=== PATIENT | female | born 1930 | race Caucasian/White ===

== ENCOUNTER 2016-10-23 08:57 | Observation (INO) | payer MEDICARE, OTHER ==
[2016-10-23] VITALS (8 sets, daily range): BP systolic 95–127; BP diastolic 38–64; PULSE 70–79; TEMP 97.4–97.6
[~2016-10-23] VITALS: Ht 160 cm; Wt 80.0 kg
[2016-10-23 09:52] LABS: MEAN CELL VOLUME 86 fl (80.0-100.0); MEAN CORPUSCULAR HGB CONC 32 g/dl (33.0-37.0); MEAN PLATELET VOLUME 9.6 fl (7.4-10.4); PLATELET COUNT 245 K/mm3 (130-400); RED BLOOD COUNT 4.16 M/mm3 (4.10-5.30); REDCELL DISTRIBUTION WIDTH-CV 15.2 % (11.5-14.5)
[2016-10-23 09:55] LABS: HEMATOCRIT 35.9 % (37.0-47.0); HEMOGLOBIN 11.6 g/dl (12.5-16.0); MEAN CORPUSCULAR HEMOGLOBIN 28 pg (27.0-31.0)
[2016-10-23 10:03] LABS: INR 1.2 (0.8-3.0); PROTHROMBIN TIME 12.8 SECONDS (9.7-12.8)
[2016-10-23 10:10] LABS: CALCIUM 9.6 mg/dL (8.4-10.2); CREATININE, serum 1.47 mg/dL (0.52-1.25)
[2016-10-23] MEDS ORDERED: ALDACTONE 25MG25 M1 PO ×2 (10:47→10:54)
[2016-10-23] MEDS ORDERED: ASPIRIN E.C. 8181 MG PO (10:48)
[2016-10-23] MEDS ORDERED: COUMADIN 3MG3 MG/TAB PO (10:49)
[2016-10-23] MEDS ORDERED: LASIX 80MG TABL80 MG PO (10:52)
[2016-10-23] MEDS ORDERED: COREG 3.123.125 MG/T PO (10:55)
[2016-10-23] MEDS ORDERED: COLACE 100100 MG/CAP PO (10:56)
[2016-10-23] MEDS ORDERED: DULCOLAX S10 MG/SUPP RC (10:56)
[2016-10-23] MEDS ORDERED: MAALOX ADVANCE148 ML PO (10:57)
[2016-10-23] MEDS ORDERED: PROAMATINE 5MG T5 MG PO (10:59)
[2016-10-23] MEDS ORDERED: MIRALAX PA17 GM/Dose PO (11:00)
[2016-10-23] MEDS ORDERED: ZOCOR 40MG40 MG PO (11:01)
[2016-10-23] MEDS ORDERED: KLOR-CON M2020 MEQ PO (11:01)
[2016-10-23] MEDS ORDERED: SYNTHROID0.1 MG/TAB PO (11:02)
[2016-10-23] MEDS ORDERED: ZAROXOLYN 2.52.5 MG PO (11:03)
[2016-10-23] MEDS ORDERED: ZOLOFT 50MG50 MG PO (11:04)
[2016-10-23] MEDS ORDERED: TYLENOL 500MG500 MG PO (11:06)
[2016-10-24 02:49] VITALS: BP 114/48; PULSE 76; TEMP 97.7
[2016-10-24 06:16] VITALS: BP 123/58; PULSE 105; TEMP 98.1
[2016-10-24 09:19] LABS: BASO % 0.2 % (0.0-2.0); EOS % 0.1 % (0-4.0); GRAN # 7.6 (1.4-6.5); GRAN % 75.5 % (42.2-75.2); LYMPH # 1.8 (1.2-3.4); LYMPH % 17.7 % (20.0-51.0); MEAN CELL VOLUME 87 fl (80.0-100.0); MEAN CORPUSCULAR HGB CONC 32 g/dl (33.0-37.0); MEAN PLATELET VOLUME 9.9 fl (7.4-10.4); MONO # 0.6 (0.1-0.6); MONO % 6.1 % (1.7-9.3); PLATELET COUNT 252 K/mm3 (130-400); RED BLOOD COUNT 3.58 M/mm3 (4.10-5.30); REDCELL DISTRIBUTION WIDTH-CV 14.9 % (11.5-14.5); WHITE BLOOD COUNT 10.1 K/mm3 (4.8-10.8)
[2016-10-24 09:21] LABS: MEAN CORPUSCULAR HEMOGLOBIN 28 pg (27.0-31.0)
[2016-10-24 09:34] LABS: ADJUSTED CALCIUM 9.2 mg/dL (8.4-10.2); ALBUMIN 3.8 gm/dL (3.5-5.0); BILIRUBIN,TOTAL 1.1 mg/dL (0.0-1.0); CREATININE, serum 1.55 mg/dL (0.52-1.25); POTASSIUM 3.9 mmol/L (3.4-5.0); TOTAL PROTEIN 7.5 gm/dL (6.4-8.2)
[2016-10-24 09:42] LABS: TROPONIN-I 0.018 ng/mL (0.000-0.034)
[2016-10-24 10:51] VITALS: BP 98/48; PULSE 71; TEMP 97.7
[2016-10-24 13:55] VITALS: BP 98/56; PULSE 70; TEMP 98.5
== END 2016-10-24 14:30 | disposition home or self-care (01) ==
LOC: SDCO 08:57 → JCC 13:00 → SDCO 10-24 09:00 → JCC 10-24 09:00 → SDCO 10-24 14:30 → JCC 10-24 14:30
PROVIDERS: Internal Medicine; Nurse Anesthetist, Certified Registered; Surgery
DX: C50.811 Malignant neoplasm of overlapping sites of right female breast (principal); R41.0 Disorientation, unspecified; I48.2 Chronic atrial fibrillation; Z79.01 Long term (current) use of anticoagulants; Z85.3 Personal history of malignant neoplasm of breast; I25.10 Atherosclerotic heart disease of native coronary artery without angina pectoris; J44.9 Chronic obstructive pulmonary disease, unspecified; E78.5 Hyperlipidemia, unspecified; I10 Essential (primary) hypertension; I50.9 Heart failure, unspecified
CPT/HCPCS: OP; 99222; 99222-AI; G0378; J0690; J1100; J2405; J2704; J3010; J7120